=== PATIENT | female | born 1995 | race African-American/Black ===

== ENCOUNTER 2018-02-11 15:00 | Emergency (ER) | payer SELFPAY ==
[~2018-02-11] VITALS: Ht 167.6 cm; Wt 59.0 kg
[2018-02-11] MEDS ORDERED: CYCLOBENZAPRINE 10MG TABLET PO ONE (17:15)
[2018-02-11] MEDS ORDERED: KETOROLAC 60MG/2ML VIAL IM ONE (17:15)
[2018-02-11 19:00] VITALS: BP 124/69
== END 2018-02-11 19:02 | disposition home or self-care (01) ==
LOC: ER 15:00
DX: S60.211A Contusion of right wrist, initial encounter (principal); S60.221A Contusion of right hand, initial encounter; S00.212A Abrasion of left eyelid and periocular area, initial encounter; V43.52XA Car driver injured in collision with other type car in traffic accident, initial encounter; Y93.89 Activity, other specified; Y92.488 Other paved roadways as the place of occurrence of the external cause
CPT/HCPCS: 73110; 73130; 81025; 99284; J1885